=== PATIENT | female | born 1985 | race African-American/Black ===

== ENCOUNTER 2017-07-09 07:51 | Day surgery (SDC) | payer MEDICAID ==
[~2017-07-09 07:51] MED LIST: DIPHENHYDRAMINE HCL 50 MG/ML VIAL ONE; EPINEPHRINE INJ 1 MG/10 ML DISP.SYRIN ONE; FLUMAZENIL INJ 0.5 MG/5 ML VIAL ONE; GLUCAGON,HUMAN RECOMB 1 MG INJ ONE; MIDAZOLAM 2 MG/2 ML INJ ONE; NALOXONE HCL INJ/PF 0.4 MG/1 ML SDV ONE; ONDANSETRON HCL INJ/PF 4 MG/2 ML SDV ONE
[2017-07-09] MEDS: MIDAZOLAM 2 MG/2 ML INJ ONE ×4 (08:35→08:45)
[2017-07-09] MEDS: FENTANYL CITRATE INJ/PF 100 MCG/2 ML AMPUL ONE ×2 (08:37→08:41)
--- NOTE | 2017-07-09 08:51 | Operative Report ---
Operative Report DATE OF SURGERY: 07/09/17 Operative Report: The risks benefits and alternatives of the procedure explained to the patient in detail and informed consent is obtained.A GIF Olympus video scope was inserted into the patient's mouth and hypopharynx ,the esophagus is identified intubated and insufflated ,the scope was then advanced through the esophagus stomach and duodenum ,retroflexion maneuver is done, the esophagus stomach and first and second portions of the duodenum examined PREOPERATIVE DIAGNOSIS: Gastroesophageal reflux disease POSTOPERATIVE DIAGNOSIS: Gastritis status post biopsy rule out Helicobacter pylori. Esophagitis status post biopsy rule out Banerjee's esophagus. Hiatal hernia OPERATION: EGD with biopsy SURGEON: LEOBARDO LINTON ANESTHESIA: Moderate Sedation - 8 mg of Versed, 150 mcg of fentanyl. Conscious sedation monitoring time 30 minutes. TISSUE REMOVED OR ALTERED: As noted above. COMPLICATIONS: None. ESTIMATED BLOOD LOSS: None. INTRAOPERATIVE FINDINGS: As discussed above. PROCEDURE: Patient tolerated procedure well. No immediate postprocedure complications are noted. Patient discharged in good condition. Discharge date 07/09/2017. Discharge diet: Regular. Discharge activity: Regular. 2-3 week follow-up to discuss findings. Patient is instructed call the office or proceed to the emergency room should there be any further problems or questions. We will await pathology.
[2017-07-09 09:56] VITALS: BP 132/84
== END 2017-07-09 10:00 | disposition home or self-care (01) ==
LOC: END 07:51
PROVIDERS: ATTEND Internal Medicine Gastroenterology
PROC: 0DB68ZX Excision of Stomach, Via Natural or Artificial Opening Endoscopic, Diagnostic (ICD-10-PCS; 2017-07-09)
PROC: 0DB48ZX Excision of Esophagogastric Junction, Via Natural or Artificial Opening Endoscopic, Diagnostic (ICD-10-PCS; principal; 2017-07-09 08:30)
DX: K21.0 Gastro-esophageal reflux disease with esophagitis (principal); K29.50 Unspecified chronic gastritis without bleeding; K44.9 Diaphragmatic hernia without obstruction or gangrene; E78.5 Hyperlipidemia, unspecified; E78.00 Pure hypercholesterolemia, unspecified; R06.00 Dyspnea, unspecified; E66.9 Obesity, unspecified; Z79.899 Other long term (current) drug therapy; Z79.84 Long term (current) use of oral hypoglycemic drugs; Z68.41 Body mass index [BMI] 40.0-44.9, adult
CPT/HCPCS: 43239; 82962; 88305 ×2; J2250; J3010; J0171; J1200; J1610; J2310; J2405; J3490

== ENCOUNTER → 2017-08-24 | Outpatient (CLI) | payer MEDICAID | LOC: OD 11:47 | PROVIDERS: ATTEND Nurse Practitioner Acute Care | DX: M79.675 Pain in left toe(s) (principal) | CPT/HCPCS: 36415; 84550 ==

== ENCOUNTER 2017-09-26 13:35 | Emergency (ER) | payer MEDICAID ==
[2017-09-26] MEDS ORDERED: LORAZEPAM INJ 2 MG/1 ML VIAL IM ONE (14:27)
--- NOTE | 2017-09-26 14:29 | ER Document Report ---
ED Medical Screen (RME) - General Chief Complaint: Seizure Stated Complaint: POSSIBLE SEIZURE Time Seen by Provider: 09/26/17 14:21 Notes: RAPID MEDICAL EVALUATION DISCLOSURE I have seen this patient as part of a Rapid Medical Evaluation and, if applicable, placed any initially appropriate orders. The patient will be seen and fully evaluated, including a full history and physical exam, by a provider ( in Main ED or Fast Track) when a room becomes available. 32-year-old female here status post generalized convulsive activity witnessed by her friend who is with her. He states activity lasted 5-10 minutes. She was confused afterwards. She has never had a seizure before. She denies any excessive caffeine use. Denies any excessive energy drink use. Denies any cocaine use. Denies any new medications recently. No prior history of seizures. She does not remember if she hit her forehead but does have some pain to the back of her head but denies neck pain. Her tetanus is up-to-date. Exam No scalp soft tissue swelling or TTP No midline cervical spine TTP or paracervical muscle TTP CTAB Mildly tachycardic 110s Right finger abrasion TRAVEL OUTSIDE OF THE [place] IN LAST 30 DAYS: No - Related Data Allergies/Adverse Reactions: No Known Allergies Allergy (Verified 09/26/17 13:37) Past Medical History - Social History Chew tobacco use (# tins/day): No Frequency of alcohol use: None Drug Abuse: None - Past Medical History Cardiac Medical History: Reports: Hx Hypertension Denies: Hx Coronary Artery Disease, Hx Heart Attack Pulmonary Medical History: Denies: Hx Asthma, Hx Bronchitis, Hx COPD, Hx Pneumonia Neurological Medical History: Denies: Hx Cerebrovascular Accident, Hx Seizures Renal/ Medical History: Denies: Hx Peritoneal Dialysis Musculoskeltal Medical History: Denies Hx Arthritis Psychiatric Medical History: Reports: Hx Anxiety, Hx Bipolar Disorder, Hx Borderline Personality Disorder, Hx Depression Past Surgical History: Reports: Hx Oral Surgery. Denies: Hx Hysterectomy - Immunizations Immunizations up to date: Yes Hx Diphtheria, Pertussis, Tetanus Vaccination: Yes Physical Exam - Vital signs Vitals: Pulse Resp BP Pulse Ox 121 H 18 135/92 H 97 09/26/17 13:46 09/26/17 13:46 09/26/17 13:46 09/26/17 13:46 Course - Vital Signs Vital signs: Temp Pulse Resp BP Pulse Ox 121 H 18 135/92 H 97 09/26/17 13:46 09/26/17 13:46 09/26/17 13:46 09/26/17 13:46
--- NOTE | 2017-09-26 15:47 | ER Document Report ---
ED General - General Chief Complaint: Seizure Stated Complaint: POSSIBLE SEIZURE Time Seen by Provider: 09/26/17 14:21 Mode of Arrival: Ambulatory Information source: Patient, Relative TRAVEL OUTSIDE OF THE [place] IN LAST 30 DAYS: No - HPI Notes: 32-year-old female with a history of bipolar 1, diabetes and hypertension presents to the emergency room for new onset times seizure while she was at low levels with her fianc x 3 hours ago. Patient came by private car due to refusing ambulance. Fiancee states her seizure lasted approximately 45 minutes. Denies hitting her head or any other area of trauma. Patient does take Trileptal for her bipolar disorder. Patient denies aura, fianc states she was postictal for approximately 30 minutes after seizure. Denies any medications, travel or foods. Denies any recent coughs, colds. Patient states she has been taking her Trileptal daily without missing a dose. Bipolar is managed by [facility] and her primary care doctor is valentin Rolon [facility] in [place]. Denies , last menstrual period was approximately 1 week ago. Denies fevers, chills, chest pain,palpitations, shortness of breath, dyspnea, nausea, vomiting, diarrhea, abdominal pain, hematuria,blurred vision, double vision, loss of vision, speech changes, LH, dizziness, syncope, headaches, wheezing, ST , URI, neck pain, weakness, bowel or bladder dysfunction, saddle anesthesia, numbness or tingling in bilateral upper or lower extremities equally, muscle paralysis, weakness in bilateral upper or lower extremities equally or rash. Denies IV drug use. - Related Data Allergies/Adverse Reactions: No Known Allergies Allergy (Verified 09/26/17 13:37) Past Medical History - General Information source: Patient - Social History Smoking Status: Unknown if Ever Smoked Chew tobacco use (# tins/day): No Frequency of alcohol use: None Drug Abuse: None Family History: Reviewed & Not Pertinent Patient has suicidal ideation: No Patient has homicidal ideation: No - Past Medical History Cardiac Medical History: Reports: Hx Hypertension Denies: Hx Coronary Artery Disease, Hx Heart Attack Pulmonary Medical History: Denies: Hx Asthma, Hx Bronchitis, Hx COPD, Hx Pneumonia Neurological Medical History: Denies: Hx Cerebrovascular Accident, Hx Seizures Renal/ Medical History: Denies: Hx Peritoneal Dialysis Musculoskeltal Medical History: Denies Hx Arthritis Psychiatric Medical History: Reports: Hx Anxiety, Hx Bipolar Disorder, Hx Borderline Personality Disorder, Hx Depression Past Surgical History: Reports: Hx Oral Surgery. Denies: Hx Hysterectomy - Immunizations Immunizations up to date: Yes Hx Diphtheria, Pertussis, Tetanus Vaccination: Yes Review of Systems - Review of Systems Constitutional: See HPI EENT: No symptoms reported Cardiovascular: No symptoms reported Respiratory: No symptoms reported Gastrointestinal: No symptoms reported Genitourinary: No symptoms reported Female Genitourinary: No symptoms reported Musculoskeletal: No symptoms reported Skin: No symptoms reported Hematologic/Lymphatic: No symptoms reported Neurological/Psychological: See HPI Physical Exam - Vital signs Vitals: Pulse Resp BP Pulse Ox 121 H 18 135/92 H 97 09/26/17 13:46 09/26/17 13:46 09/26/17 13:46 09/26/17 13:46 - Notes Notes: PHYSICAL EXAMINATION: GENERAL: Well-appearing, well-nourished and in no acute distress. HEAD: Atraumatic, normocephalic. EYES: Pupils equal round and reactive to light, extraocular movements intact, conjunctiva are normal. ENT: Nares patent, oropharynx clear without exudates. Moist mucous membranes. NECK: Normal range of motion, supple without lymphadenopathy LUNGS: Breath sounds clear to auscultation bilaterally and equal. No wheezes rales or rhonchi. HEART: Regular rate and rhythm without murmurs ABDOMEN: Soft, nontender, nondistended abdomen. No guarding, no rebound. No masses appreciated. Female : deferred Musculoskeletal: Normal range of motion, no pitting or edema. No cyanosis. NEUROLOGICAL: Cranial nerves grossly intact. Normal speech, normal gait. Normal sensory, motor exams. PERRLA, EOMI. Full motor and sensory function throughout. 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 Tongue midline. No pronator drift. No ataxia. Neck with APROM. Raises eyebrows. Strength is 5 out of 5 in bilateral upper and lower extremities equally.Speaks in full sentences. No weakness on one side. Romberg gait steady able to walk straight line. Able to recall 5 objects. PSYCH: Normal mood, normal affect. SKIN: Warm, Dry, normal turgor, no rashes or lesions noted. Course - Re-evaluation Re-evalutation: 32-year-old female new onset seizure who is afebrile, who is slightly tachycardic tachycardia resolved after IV hydration who is in no distress presents for evaluation of new onset seizures. CBC slightly elevated this is likely due to urinalysis showing leukocytes however she she did test have a grand mal seizure, both causing elevation in her leukocytes. CMP negative for renal or hepatic dysfunction, no electrolyte disturbances. Cardiac enzymes negative, patient was not complaining of any chest pain or shortness of breath. EKG negative for acute findings. Lactic negative. Lipase negative. HCG negative. CT head and chest x-ray negative for any acute findings per radiology. Patient states she feels remarkably better after 1 L of IV fluids. After performing a Medical Screening Examination, I estimate there is LOW risk for ACUTE GLAUCOMA, TEMPORAL ARTERITIS, MENINGITIS, INCRANIAL HEMORRHAGE, or ISCHEMIC STROKE thus I consider the discharge disposition reasonable. I have reevaluated this patient multiple times and no significant life threatening changes are noted. The patient and I have discussed the diagnosis and risks, and we agree with discharging home with close follow-up with the understanding that symptoms and presentations can change. We also discussed returning to the Emergency Department immediately if new or worsening symptoms occur. We have discussed the symptoms which are most concerning (e.g., changing or worsening symptoms, new numbness or weakness, vomiting, fever) that necessitate immediate return. Discussed with patient that her seizure could have been from a multitude of triggers such as dehydration, possibly missing a dose of her Trileptal, interaction of her medication, interactions with otc vitamins or alcohol, etc. Case discussed with Dr. Neptali White, ER attending, who felt that patient did not need anticonvulsant medication Keppra while in ER no other new symptoms evaluated by neurologist. discussed with patient having 1 g of seizures does not diagnose her as an epileptic, does need to follow-up with her neurosurgeon neurologist, discussed with patient she cannot drive until she seen by neurologist and cleared by neurologist. Advised to take oral anti- diuretic medication for UTI as directed. Follow-up with your primary care doctor within 3 days. Follow-up with a neurologist within 3-5 days. I have reevaluated this patient multiple times and no significant life threatening changes, no signs of toxicity, sepsis or peritonitis are noted. The patient and I have discussed the diagnosis and risks, and we agree with discharging home and close follow-up. We also discussed returning to the Emergency Department immediately if new or worsening symptoms occur with the understanding that symptoms and presentations can change. At this time will discharge with return precautions and follow-up recommendations. Verbal discharge instructions given a the bedside and opportunity for questions given. We have discussed the symptoms which are most concerning (e.g., saddle anesthesia, urinary or bowel incontinence or retention, changing or worsening pain) that necessitate immediate return. Medication warnings reviewed. Patient is in agreement with this plan and has verbalized understanding of return precautions and the need for primary care follow-up in the next 24-72 hours. Patient verbalized understanding of plan of care and agree with plan of care. - Vital Signs Vital signs: Temp Pulse Resp BP Pulse Ox 97.9 F 121 H 16 134/99 H 100 09/26/17 19:03 09/26/17 13:46 09/26/17 18:56 09/26/17 18:57 09/26/17 18:56 - Laboratory Result Diagrams: 09/26/17 16:09 09/26/17 16:09 Laboratory results interpreted by me: 09/26/17 09/26/17 09/26/17 16:09 16:09 16:09 WBC 15.0 H Hgb 11.3 L Hct 35.2 L MCV 76 L MCH 24.4 L RDW 16.8 H Plt Count 513 H Seg Neutrophils % 80.4 H Absolute Neutrophils 12.0 H BUN 6 L Total Bilirubin < 0.1 L Alkaline Phosphatase 148 H Creatine Kinase TSH 0.25 L Urine Protein Urine Ketones Urine Urobilinogen Ur Leukocyte Esterase Urine Ascorbic Acid 09/26/17 09/26/17 16:09 16:09 WBC Hgb Hct MCV MCH RDW Plt Count Seg Neutrophils % Absolute Neutrophils BUN Total Bilirubin Alkaline Phosphatase Creatine Kinase 445 H TSH Urine Protein 30 H Urine Ketones TRACE H Urine Urobilinogen 4.0 H Ur Leukocyte Esterase MODERATE H Urine Ascorbic Acid 40 H - EKG Interpretation by Ne EKG shows normal: Sinus rhythm Rate: Tachycardia Rhythm: NSR Discharge - Discharge Clinical Impression: Seizure UTI (urinary tract infection) Qualifiers: Urinary tract infection type: acute cystitis Hematuria presence: without hematuria Qualified Code(s): N30.00 - Acute cystitis without hematuria Condition: Good Disposition: HOME, SELF-CARE Instructions: New Seizure ([facility]), Nitrofurantoin ([facility]), Urinary Tract Infection ([facility]) Additional Instructions: URINARY TRACT INFECTION: Your evaluation indicates that you have a urinary tract infection. This is due to germs growing in the bladder. This is a common problem. This infection usually responds quickly to antibiotics. Your antibiotic should be taken exactly as prescribed. Drink plenty of fluids -- three to four quarts a day. Occasionally, a bladder anesthetic will be prescribed to help stop the feeling of urgency until the antibiotic has a chance to clear the infection. This may cause your urine to be dark orange. Certain urine infections require a culture. If the doctor obtained a culture, the results will be back in two days. You should call to see if a change in treatment is needed. A repeat urinalysis after you finish treatment is often recommended. The physician will let you know if further testing is required. Call the doctor if you develop fever, chills, flank pain, inability to urinate, or blood in the urine. ANTIBIOTIC THERAPY: You have been given an antibiotic prescription. It's important that you take all the medication, unless instructed otherwise by your physician. Failure to complete the entire course can result in relapse of your condition. Common side effects of antibiotics include nausea, intestinal cramping, or diarrhea. Women may develop vaginal yeast infections, and babies can get yeast (thrush) in the mouth following the use of antibiotics. Contact your physician if you develop significant side effects from this medication. Allergy to this antibiotic can result in hives, wheezing, faintness, or itching. If symptoms of allergy occur, stop the medication and call the doctor. NITROFURANTOIN (MACRODANTIN, MACROBID): You have received a prescription for nitrofurantoin (Macrodantin). This antibiotic is used for urinary tract infections. Women who are or nursing should notify the physician before taking this medicine. If you have ever had a problem caused by this medication in the past, be sure the physician is aware of it. Common side effects of this medicine include nausea, vomiting, or decreased appetite. Notify your physician if these side effects become severe. Immediately stop this medicine and call the physician if you develop cough , shortness of breath, chest pain, weakness, jaundice (yellow color of the skin and whites of the eyes), or a skin rash. Follow-up with neurologist and primary care within the next [address] until you are seen by her neurologist. FOLLOW-UP CARE: If you have been referred to a physician for follow-up care, call the physician s office for an appointment as you were instructed or within the next two days. If you experience worsening or a significant change in your symptoms, notify the physician immediately or return to the Emergency Department at any time for re-evaluation. Prescriptions: Nitrofurantoin Monohyd/M-Cryst [Macrobid 100 mg Capsule] 1 tab PO BID #20 capsule Forms: Return to Work Referrals: NATASHA ALVARADO MD [COMMUNITY BASED STAFF] - Follow up in 3-5 days ROBE MORENO MD [COMMUNITY BASED STAFF] - Follow up in 1 week
--- NOTE | 2017-09-26 16:02 | RADIOLOGY REPORT (SQ) ---
EXAM DESCRIPTION: CT HEAD WITHOUT COMPLETED DATE/TIME: 09/26/2017 3:52 pm REASON FOR STUDY: first time seizure COMPARISON: None. TECHNIQUE: Axial images acquired through the brain without intravenous contrast. Images reviewed wi th bone, brain and subdural windows. Additional sagittal and coronal reconstructions were generated. Images stored on PACS. All CT scanners at this facility use dose modulation, iterative reconstruction, and/or weight based d osing when appropriate to reduce radiation dose to as low as reasonably achievable (ALARA). [facility]: Dose Right [facility]: CareDose [facility]: Dose Right [facility]: Teradose 4D [facility]: Smart 120 Sports RADIATION DOSE: CT Rad equipment meets quality standard of care and radiation dose reduction techniq ues were employed. CTDIvol: 53.2 mGy. DLP: 991 mGy-cm. mGy. LIMITATIONS: None. FINDINGS: VENTRICLES: Normal size and contour. CEREBRUM: No masses. No hemorrhage. No midline shift. No evidence for acute infarction. Normal gra y/white matter differentiation. No areas of low density in the white matter. CEREBELLUM: No masses. No hemorrhage. No alteration of density. No evidence for acute infarction. EXTRAAXIAL SPACES: No fluid collections. No masses. ORBITS AND GLOBE: No intra- or extraconal masses. Normal contour of globe without masses. CALVARIUM: No fracture. PARANASAL SINUSES: No fluid or mucosal thickening. SOFT TISSUES: No mass or hematoma. OTHER: No other significant finding. IMPRESSION: NORMAL BRAIN CT WITHOUT CONTRAST. EVIDENCE OF ACUTE STROKE: NO. COMMENT: Quality ID # [id number]: Final reports with documentation of one or more dose reduction techniques (e.g., Automated exposure control, adjustment of the mA and/or kV according to patient size, use of iterative reconstruction technique) TECHNICAL DOCUMENTATION: JOB ID: [id number] [employer]- All Rights Reserved Reading location - IP/workstation name: [email or web address]
[2017-09-26 16:21] LABS: ABSOLUTE BASOPHILS # (AUTO) 0.1 10^3/uL (0.0-0.2); ABSOLUTE EOSINOPHILS # (AUTO) 0.1 10^3/uL (0.0-0.6); ABSOLUTE LYMPHOCYTES (AUTO) 2.1 10^3/uL (0.5-4.7); ABSOLUTE MONOCYTES (AUTO) 0.7 10^3/uL (0.1-1.4); BASOPHILS % (AUTO) 0.4 % (0-2); EOSINOPHILS % (AUTO) 0.4 % (0-6); HEMATOCRIT 35.2 % (36.0-47.0); HEMOGLOBIN 11.3 g/dL (12.0-15.5); LYMPHOCYTES % (AUTO) 13.9 % (13-45); MEAN CORPUSCULAR HEMOGLOBIN 24.4 pg (27.0-33.4); MEAN CORPUSCULAR HGB CONC 32.1 g/dL (32.0-36.0); MEAN CORPUSCULAR VOLUME 76 fl (80-97); MONOCYTES % (AUTO) 4.9 % (3-13); PLATELET COUNT 513 10^3/uL (150-450); RED BLOOD COUNT 4.64 10^6/uL (3.72-5.28); RED CELL DISTRIBUTION WIDTH 16.8 % (11.5-14.0); SEGMENTED NEUTROPHILS % (AUTO) 80.4 % (42-78); TOTAL CELLS COUNTED % (AUTO) 100 %
[2017-09-26 16:23] LABS: APPEARANCE,URINE CLOUDY; BILIRUBIN,URINE NEGATIVE (NEGATIVE); COLOR,URINE YELLOW; GLUCOSE, URINE NEGATIVE (NEGATIVE); KETONES,URINE TRACE mg/dL (NEGATIVE); LEUKOCYTE ESTERASE,URINE MODERATE (NEGATIVE); NITRITE,URINE NEGATIVE (NEGATIVE); PROTEIN,URINE 30 mg/dL (NEGATIVE); URINE SPECIFIC GRAVITY 1.026
[2017-09-26 16:36] LABS: URINE AMPHETAMINES SCREEN NEGATIVE; URINE BARBITURATES SCREEN NEGATIVE; URINE BENZODIAZEPINES SCREEN NEGATIVE; URINE COCAINE SCREEN NEGATIVE; URINE MARIJUANA (THC) SCREEN NEGATIVE; URINE METHADONE SCREEN NEGATIVE; URINE PHENCYCLIDINE SCREEN NEGATIVE
[2017-09-26 16:39] LABS: ALANINE AMINOTRANSFERASE 32 U/L (9-52); ALBUMIN 4.1 g/dL (3.5-5.0); ALKALINE PHOSPHATASE 148 U/L (38-126); ANION GAP 13 (5-19); ASPARTATE AMINO TRANSFERASE 35 U/L (14-36); BLOOD UREA NITROGEN 6 mg/dL (7-20); CALCIUM 9.5 mg/dL (8.4-10.2); CARBON DIOXIDE 27 mmol/L (22-30); CHLORIDE 105 mmol/L (98-107); GLUCOSE 101 mg/dL (75-110); PHOSPHORUS 3.2 mg/dL (2.5-4.5); POTASSIUM 4.2 mmol/L (3.6-5.0); SODIUM 144.8 mmol/L (137-145); TOTAL PROTEIN 7.8 g/dL (6.3-8.2)
[2017-09-26 16:40] LABS: CREATINE KINASE 445 U/L (30-135)
[2017-09-26 16:42] LABS: BILIRUBIN,TOTAL < 0.1 mg/dL (0.2-1.3)
[2017-09-26 16:43] LABS: ALCOHOL < 10 mg/dL (NONE DETECTED)
[2017-09-26 16:51] LABS: CREATINE KINASE MB 1.52 ng/mL (<4.55)
[2017-09-26 16:52] LABS: TROPONIN I < 0.012 ng/mL
[2017-09-26] MEDS ORDERED: NORMAL SALINE 1000 ML 1,000 ML IV PRN (17:25)
[2017-09-26] MEDS ORDERED: LEVETIRACETAM 1500 MG/NACL-ISO 1,500 MG/100 ML RTUPB IV ONE (18:07)
--- NOTE | 2017-09-26 18:15 | RADIOLOGY REPORT (SQ) ---
EXAM DESCRIPTION: CHEST 2 VIEWS COMPLETED DATE/TIME: 09/26/2017 6:06 pm REASON FOR STUDY: new onset seizure COMPARISON: None. EXAM PARAMETERS: NUMBER OF VIEWS: two views TECHNIQUE: Digital Frontal and Lateral radiographic views of the chest acquired. RADIATION DOSE: NA LIMITATIONS: none FINDINGS: LUNGS AND PLEURA: No opacities, masses or pneumothorax. No pleural effusion. MEDIASTINUM AND HILAR STRUCTURES: No masses or contour abnormalities. HEART AND VASCULAR STRUCTURES: Heart normal size. No evidence for failure. BONES: No acute findings. HARDWARE: None in the chest. OTHER: No other significant finding. IMPRESSION: NO ACUTE RADIOGRAPHIC FINDING IN THE CHEST. TECHNICAL DOCUMENTATION: JOB ID: [id number] [employer]- All Rights Reserved Reading location - IP/workstation name: [email or web address]
[2017-09-26 19:22] VITALS: BP 134/99
--- NOTE | 2017-09-26 23:23 | EKG REPORT ---
SEVERITY:- BORDERLINE ECG - SINUS TACHYCARDIA PROBABLE LEFT ATRIAL ABNORMALITY : Confirmed by: Narinder Capellan MD 26-Sep-2017 23:22:43
== END 2017-09-26 19:03 | disposition home or self-care (01) ==
LOC: ER 13:35
DX: G40.909 Epilepsy, unspecified, not intractable, without status epilepticus (principal); N30.00 Acute cystitis without hematuria; R00.0 Tachycardia, unspecified; I10 Essential (primary) hypertension; F31.9 Bipolar disorder, unspecified
CPT/HCPCS: 93005; 99285; 96360; 36415; 87086; 84439; 82553; 80307 ×2; 82550; 83735; 84100; 84443; 85025; 81025; 87088; 80053; 81001; 84484; 87186; 83605; 71046; 70450; 93010; J7030

== ENCOUNTER 2017-11-30 16:21 | Emergency (ER) | payer OTHER, MEDICAID ==
[2017-11-30] MEDS ORDERED: LEVETIRACETAM 1000 MG/NACL-ISO 1,000 MG/100 ML RTUPB IV ONE (17:32)
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
[2017-11-30 18:25] VITALS: BP 126/91
== END 2017-11-30 18:44 | disposition home or self-care (01) ==
LOC: ER 16:21
DX: R56.9 Unspecified convulsions (principal); V59.40XA Driver of pick-up truck or van injured in collision with unspecified motor vehicles in traffic accident, initial encounter; I10 Essential (primary) hypertension
CPT/HCPCS: 99285; 82962; J1953

== ENCOUNTER 2018-05-28 20:07 | Emergency (ER) | payer MEDICAID ==
[2018-05-28 20:36] VITALS: BP 130/94
[2018-05-28] MEDS ORDERED: LEVETIRACETAM 1500 MG/NACL-ISO 1,500 MG/100 ML RTUPB IV ONE (20:47)
[2018-05-28] MEDS ORDERED: LEVETIRACETAM 500 MG/NACL-ISO 500 MG/100 ML RTUPB IV ONE (20:55)
[2018-05-28] MEDS ORDERED: LEVETIRACETAM 1000 MG/NACL-ISO 1,000 MG/100 ML RTUPB IV ONE (20:55)
[2018-05-28 20:59] LABS: ABSOLUTE BASOPHILS # (AUTO) 0.1 10^3/uL (0.0-0.2); ABSOLUTE EOSINOPHILS # (AUTO) 0.1 10^3/uL (0.0-0.6); ABSOLUTE LYMPHOCYTES (AUTO) 2.4 10^3/uL (0.5-4.7); ABSOLUTE MONOCYTES (AUTO) 0.5 10^3/uL (0.1-1.4); ABSOLUTE NEUT (AUTO) 10.8 10^3/uL (1.7-8.2); BASOPHILS % (AUTO) 0.6 % (0-2); EOSINOPHILS % (AUTO) 0.5 % (0-6); HEMATOCRIT 30.9 % (36.0-47.0); HEMOGLOBIN 9.9 g/dL (12.0-15.5); LYMPHOCYTES % (AUTO) 17.2 % (13-45); MEAN CORPUSCULAR HEMOGLOBIN 24.1 pg (27.0-33.4); MEAN CORPUSCULAR HGB CONC 32.1 g/dL (32.0-36.0); MEAN CORPUSCULAR VOLUME 75 fl (80-97); MONOCYTES % (AUTO) 3.8 % (3-13); PLATELET COUNT 593 10^3/uL (150-450); RED BLOOD COUNT 4.11 10^6/uL (3.72-5.28); RED CELL DISTRIBUTION WIDTH 16.9 % (11.5-14.0); SEGMENTED NEUTROPHILS % (AUTO) 77.9 % (42-78); TOTAL CELLS COUNTED % (AUTO) 100 %; WHITE BLOOD COUNT 13.9 10^3/uL (4.0-10.5)
--- NOTE | 2018-05-28 21:04 | RADIOLOGY REPORT (SQ) ---
EXAM DESCRIPTION: CT HEAD WITHOUT IV CONTRAST COMPLETED DATE/TME: 05/28/2018 00:00 CLINICAL HISTORY: 32 years, Female, seizure, fall This exam was performed according to our departmental dose-optimization program which includes automated exposure control, adjustment of the mA and/or kVp according to patient size and/or use of iterative reconstruction technique where applicable. FINDINGS: No acute intracranial hemorrhage, mass effect or midline shift. No extra-axial fluid collections. Ventricles and subarachnoid spaces are preserved. Watters-white matter differentiation is preserved. Visualized paranasal sinuses and the mastoid air cells are clear. The skull is intact. IMPRESSION: No acute intracranial hemorrhage.
--- NOTE | 2018-05-28 21:05 | RADIOLOGY REPORT (SQ) ---
EXAM DESCRIPTION: CT CERVICAL SPINE WITHOUT IV CONTRAST COMPLETED DATE/TME: 05/28/2018 00:00 CLINICAL HISTORY: 32 years, Female, seizure, fall This exam was performed according to our departmental dose-optimization program which includes automated exposure control, adjustment of the mA and/or kVp according to patient size and/or use of iterative reconstruction technique where applicable. FINDINGS: Vertebral body heights are intact. Alignment is intact. No subluxation. No significant prevertebral soft tissue swelling. The facets are normally aligned. Odontoid process is intact. IMPRESSION: No acute fracture or subluxation.
[2018-05-28 21:08] LABS: ALANINE AMINOTRANSFERASE 24 U/L (9-52); ALBUMIN 4.2 g/dL (3.5-5.0); ALKALINE PHOSPHATASE 110 U/L (38-126); ANION GAP 11 (5-19); ASPARTATE AMINO TRANSFERASE 37 U/L (14-36); BILIRUBIN,DIRECT 0.3 mg/dL (0.0-0.4); BILIRUBIN,TOTAL 0.3 mg/dL (0.2-1.3); BLOOD UREA NITROGEN 7 mg/dL (7-20); CALCIUM 8.5 mg/dL (8.4-10.2); CARBON DIOXIDE 25 mmol/L (22-30); CHLORIDE 106 mmol/L (98-107); GLUCOSE 134 mg/dL (75-110); LITHIUM 1.2 mEq/L (0.6-1.2); POTASSIUM 3.5 mmol/L (3.6-5.0); SODIUM 141.9 mmol/L (137-145); TOTAL PROTEIN 7.6 g/dL (6.3-8.2)
--- NOTE | 2018-05-28 21:36 | ER Document Report ---
ED General - General Chief Complaint: Probable Seizure Stated Complaint: LEFT KNEE PAIN Time Seen by Provider: 05/28/18 20:29 Primary Care Provider: CHETAN VILLAREAL MD [Primary Care Provider] - Follow up as needed TRAVEL OUTSIDE OF THE [place] IN LAST 30 DAYS: No - HPI Patient complains to provider of: seizure Onset: Other - 32-year-old female with a history of bipolar disorder as well as a seizures in the past who had previously been on Keppra to help control her seizures but was stopped because they thought that she was potentially having pseudoseizures. Today she had a single episode of 2 minutes of tonic-clonic jerking followed by another 2 minutes 3 hours later when she fell and hit her forehead hard on the ground. She denies any other illnesses recently any changes in medications or other symptoms. She is on a myriad of medications related to her mood. - Related Data Allergies/Adverse Reactions: No Known Allergies Allergy (Verified 11/30/17 16:34) Past Medical History - General Information source: Patient - Social History Smoking Status: Never Smoker Frequency of alcohol use: None Drug Abuse: None Family History: Reviewed & Not Pertinent Patient has suicidal ideation: No Patient has homicidal ideation: No - Past Medical History Cardiac Medical History: Reports: Hx Hypertension Denies: Hx Coronary Artery Disease, Hx Heart Attack Pulmonary Medical History: Denies: Hx Asthma, Hx Bronchitis, Hx COPD, Hx Pneumonia Neurological Medical History: Denies: Hx Cerebrovascular Accident, Hx Seizures Renal/ Medical History: Denies: Hx Peritoneal Dialysis Musculoskeletal Medical History: Denies Hx Arthritis Psychiatric Medical History: Reports: Hx Anxiety, Hx Bipolar Disorder, Hx Borderline Personality Disorder, Hx Depression Past Surgical History: Reports: Hx Oral Surgery - all teeth. Denies: Hx Hysterectomy - Immunizations Immunizations up to date: Yes Hx Diphtheria, Pertussis, Tetanus Vaccination: Yes Review of Systems - Review of Systems -: Yes All other systems reviewed and negative Physical Exam - Vital signs Vitals: Temp Resp BP 99.0 F 16 158/103 H 05/28/18 20:12 05/28/18 20:12 05/28/18 20:12 Interpretation: Normal - General General appearance: Appears well, Alert - HEENT Head: Other - Swelling of the forehead. Eyes: Normal Pupils: PERRL - Respiratory Respiratory status: No respiratory distress Chest status: Nontender Breath sounds: Normal Chest palpation: Normal - Cardiovascular Rhythm: Regular Heart sounds: Normal auscultation Murmur: No - Abdominal Inspection: Normal Distension: No distension Bowel sounds: Normal Tenderness: Nontender Organomegaly: No organomegaly - Back Back: Normal, Nontender - Extremities General upper extremity: Normal inspection, Nontender, Normal color, Normal ROM, Normal temperature General lower extremity: Normal inspection, Nontender, Normal color, Normal ROM, Normal temperature, Normal weight bearing. No: Irene's sign - Neurological Neuro grossly intact: Yes Cognition: Normal Orientation: AAOx4 [place] Coma Scale Eye Opening: Spontaneous Cynthia Coma Scale Verbal: Oriented [place] Coma Scale Motor: Obeys Commands Cynthia Coma Scale Total: 15 Speech: Normal Motor strength normal: LUE, RUE, LLE, RLE Sensory: Normal - Psychological Associated symptoms: Normal affect, Normal mood - Skin Skin Temperature: Warm Skin Moisture: Dry Skin Color: Normal Course - Re-evaluation Re-evalutation: 05/28/18 21:33 32-year-old female with seizures. Previously been treated for seizures using Keppra, was stopped because there was a concern this could be pseudoseizures several months prior though in the intervening time her fianc notes that she has had multiple occurrences which she appears to have episodes of shaking unresponsiveness what appeared to be seizures. Today she had 2 episodes after such she is return to baseline. She did hit her forehead. Obtained a CT given the injury to her forehead. She currently is returned to her baseline neurologically. Has not had any change in her medications recently. On examination she does not demonstrate any obvious issues. We will administer a dose of Keppra in the emergency department obtain a lithium level as well as a chemistry to count. CT imaging of the head and cervical spine is negative, lithium level is normal, CBC is modestly anemic but unchanged from previous. Her chemistry is unremarkable. This patient does not demonstrate any obvious secondary causes of seizures at this time such as but not limited to hyponatremia or intracranial pressure increase. Because I think that she likely is suffering from possible seizures will restart Keppra for her. She had tolerated this well in the past. We will plan for discharge with return precautions and expectant management. - Vital Signs Vital signs: Temp Pulse Resp BP Pulse Ox 99.0 F 28 H 130/94 H 100 05/28/18 20:12 05/28/18 21:00 05/28/18 21:00 05/28/18 21:00 - Laboratory Result Diagrams: 05/28/18 20:17 05/28/18 20:17 Laboratory results interpreted by me: 05/28/18 05/28/18 20:17 20:17 WBC 13.9 H Hgb 9.9 L Hct 30.9 L MCV 75 L MCH 24.1 L RDW 16.9 H Plt Count 593 H Absolute Neutrophils 10.8 H Potassium 3.5 L Glucose 134 H AST 37 H Discharge - Discharge Clinical Impression: Seizure Contusion Qualifiers: Encounter type: initial encounter Contusion area: head Contusion of head detail: scalp Qualified Code(s): S00.03XA - Contusion of scalp, initial encounter Condition: Good Disposition: HOME, SELF-CARE Instructions: Seizure, Known Epileptic ([facility]) Additional Instructions: Today you had an episode which it is likely had [address] seizures[address] a [address] scan of your head. You had blood work and a lithium level checked. No cause for your seizure was I do not fight, your CAT scan was normal. Your lithium level was normal. You should restart your Keppra, take 500 mg twice a day. Return in case you have worsening seizures numbness or weakness or headache or unable to eat or drink. Prescriptions: Levetiracetam [Keppra 500 mg Tablet] 500 mg PO Q12 #60 tablet Referrals: CHETAN VILLAREAL MD [Primary Care Provider] - Follow up as needed
== END 2018-05-28 21:53 | disposition home or self-care (01) ==
LOC: ER 20:07
DX: R56.9 Unspecified convulsions (principal); S00.03XA Contusion of scalp, initial encounter; W19.XXXA Unspecified fall, initial encounter; D64.9 Anemia, unspecified; Z79.899 Other long term (current) drug therapy
CPT/HCPCS: 99284; 96365; 36415; 80178; 85025; 80053; 70450; 72125; J1953

== ENCOUNTER → 2018-06-11 | Outpatient (CLI) | payer MEDICAID | LOC: OD 10:39 | PROVIDERS: ATTEND Physician Assistant | DX: F31.32 Bipolar disorder, current episode depressed, moderate (principal); Z79.899 Other long term (current) drug therapy | CPT/HCPCS: 36415; 80178 ==